=== PATIENT | male | born 1950 | race Caucasian/White ===

== ENCOUNTER 2022-12-11 14:45 | Emergency (ER) | payer MEDICARE, OTHER ==
[~2022-12-11] VITALS: Ht 170.2 cm; Wt 81.8 kg
[2022-12-11 14:56] VITALS: TEMP 98.3
[2022-12-11 15:11] VITALS: BP 175/95; PULSE 76
[2022-12-11] MEDS ORDERED: MOTRIN 800800 MG/TAB PO ×2 (15:16→15:28)
[2022-12-11] MEDS ORDERED: PERCOCET 325 MG1 TA2 PO ×2 (15:16→15:28)
[2022-12-11] MEDS ORDERED: FLEXERIL 1010 MG/TAB PO ×2 (15:16→15:28)
== END 2022-12-11 15:40 | disposition home or self-care (01) ==
LOC: COL.ER 14:45
DX: M54.31 Sciatica, right side (principal)